=== PATIENT | female | born 1935 | race Caucasian/White ===

== ENCOUNTER → 2016-06-25 | Outpatient (CLI) | payer OTHER ==
[~2016-06-25] MED LIST: ALTACE PO; ALTACE10 M1 PO; ALTACE10 MG PO; ASPIRIN EC81 M1 PO; CALCIUM + D SO1 EACH PO; CALCIUM 500 +1 EAC5 PO; CALCIUM PO; CARDIZEM CD240 MG PO; CEFTIN 250 MG250 MG PO; CEFUROXIME500 MG PO; CEPACOL SORE T1 EAC8 PO; DIPHENHIST50 MG PO; DOXYCYCLINE 10100 MG PO; ELIQUIS5 MG PO; IBUPROFEN 200200 M1 PO; IMDUR 60 MG TAB60 M1 PO; IMDUR PO; LOPRESSOR50 PO; MAG DELAY64 MG PO; MECLIZINE 25 MG25 M1; MUCINEX TA600 MG/TA2 PO; MULTIVITAMINS PO; NABUMETONE 500500 M1 PO; NITROGLYCERIN0.4 MG; NITROGLYCERIN0.4 MG SL; OMEPRAZOLE PO; PACERONE 200 M200 M1; PRAVACHOL40 MG PO; PREDNISONE 10 M10 MG; PROAIR HFA8.5 GM INH; PROBIOTIC1 EAC1 PO; PROMETHAZINE-C120 ML PO; PROTONIX 20 MG20 M1 PO; PROTONIX40 M1 PO; RECLAST 55 MG/1002 IV; TOPROL XL25 MG; TOPROL XL25 MG PO; TOPROL XL50 MG PO; TRIAMCINOLONE A15 G1 TP; TYLENOL325 MG PO; VITAMIN D3400 UNIT PO; VITAMIN D400 UNI1 PO; XARELTO20 MG PO; ZOCOR PO; ZOCOR40 MG PO; ZOFRAN ODT4 MG PO
== END ==
LOC: RAD 16:33
DX: J18.9 Pneumonia, unspecified organism (principal); J98.11 Atelectasis; R91.8 Other nonspecific abnormal finding of lung field

== ENCOUNTER 2017-02-06 07:00 | Emergency (ER) | payer OTHER ==
[~2017-02-06] VITALS: Ht 147.3 cm; Wt 62.6 kg
[2017-02-06] MEDS ORDERED: VALIUM5 MG PO (08:37)
[2017-02-06] MEDS ORDERED: NEURONTIN 300300 M1 PO (08:37)
== END 2017-02-06 08:54 | disposition home or self-care (01) ==
LOC: ER 07:00
DX: M62.838 Other muscle spasm (principal); I48.91 Unspecified atrial fibrillation; Z87.01 Personal history of pneumonia (recurrent); Z88.1 Allergy status to other antibiotic agents; Z88.8 Allergy status to other drugs, medicaments and biological substances

== ENCOUNTER → 2017-02-19 | Outpatient (CLI) | payer OTHER ==
[~2017-02-19] MED LIST changes: +NEURONTIN 300300 M1 PO; +VALIUM5 MG PO
== END ==
LOC: RAD 11:56
DX: M47.892 Other spondylosis, cervical region (principal)

== ENCOUNTER → 2020-08-19 | Outpatient (CLI) | payer OTHER | LOC: SJCVC 13:45 | PROVIDERS: ATTEND Internal Medicine Cardiovascular Disease | DX: R94.31 Abnormal electrocardiogram [ECG] [EKG] (principal); I44.7 Left bundle-branch block, unspecified; R00.0 Tachycardia, unspecified; R00.1 Bradycardia, unspecified; I48.20 Chronic atrial fibrillation, unspecified; I10 Essential (primary) hypertension; E78.00 Pure hypercholesterolemia, unspecified; D68.59 Other primary thrombophilia; I25.10 Atherosclerotic heart disease of native coronary artery without angina pectoris; Z86.16 Personal history of COVID-19; M81.0 Age-related osteoporosis without current pathological fracture; Z87.01 Personal history of pneumonia (recurrent); Z78.0 Asymptomatic menopausal state; Z79.899 Other long term (current) drug therapy; Z72.89 Other problems related to lifestyle; Z88.1 Allergy status to other antibiotic agents; Z88.8 Allergy status to other drugs, medicaments and biological substances ==